=== PATIENT | male | born 1985 | race Two or more races ===

== ENCOUNTER 2017-03-22 20:59 | Emergency (ER) | payer SELFPAY ==
[~2017-03-22] VITALS: Ht 182.9 cm; Wt 75.3 kg
[2017-03-22 21:31] VITALS: BP 125/78
--- NOTE | 2017-03-22 23:07 | NUR ---
INFORMED BY ADMITTING "PT LEFT"
== END 2017-03-22 23:08 | disposition left against medical advice (07) ==
LOC: ER 21:00
DX: Z53.21 Procedure and treatment not carried out due to patient leaving prior to being seen by health care provider (principal)
CPT/HCPCS: A4606; Z7610